=== PATIENT | male | born 1980 | race Hispanic/Latino ===

== ENCOUNTER 2020-08-08 18:21 | Emergency (ER) | payer SELFPAY ==
--- NOTE | 2020-08-08 19:59 | Event Note ---
ED Screening Note Date of service: 08/08/20 Time: 19:58 ED Screening Note: c/o SOB x 3 days denies hemoptysis or productive cough denies fever +smoker This initial assessment/diagnostic orders/clinical plan/treatment(s) is/are subject to change based on patients health status, clinical progression and re- assessment by fellow clinical providers in the ED. Further treatment and workup at subsequent clinical providers discretion. Patient/guardian urged not to elope from the ED as their condition may be serious if not clinically assessed and managed. Initial orders include: CXR
[2020-08-08 20:04] VITALS: BP 114/67
--- NOTE | 2020-08-08 21:16 | XRay Report ---
CHEST 2 VIEWS 2017 INDICATION / CLINICAL INFORMATION: Shortness of breath for 3 days COMPARISON: None available. FINDINGS: SUPPORT DEVICES: None. HEART / MEDIASTINUM: No significant abnormality. LUNGS / PLEURA: No significant pulmonary or pleural abnormality. No pneumothorax. ADDITIONAL FINDINGS: No significant additional findings. IMPRESSION: No significant acute abnormality Signer Name: Ezio Rizvi MD Signed: 08/08/2020 9:12 PM Workstation Name: [id number]
--- NOTE | 2020-08-08 22:35 | Emergency Department Report ---
- General Chief Complaint: Dyspnea/Respdistress Stated Complaint: SOB Time Seen by Provider: 08/08/20 19:58 Source: patient Mode of arrival: Ambulatory Limitations: No Limitations - History of Present Illness Initial Comments: Patient is 39 years old male with no significant past medical history. Patient presented to the emergency room complaining of shortness of breath, runny nose, cough and congestion for 2 days. Patient denied any fever or chills. No nausea or vomiting. Patient also asking if he can have a drug screen tonight. MD Complaint: cough, rhinorrhea, nasal congestion -: days(s) (2) Severity: moderate - Related Data Allergies Allergy/AdvReac Type Severity Reaction Status Date / Time Penicillins Allergy Itching Verified 08/08/20 19:58 ED Review of Systems ROS: Stated complaint: SOB Other details as noted in HPI Comment: All other systems reviewed and negative Constitutional: denies: chills, fever ENT: congestion. denies: ear pain, dental pain, hearing loss Respiratory: cough, shortness of breath. denies: SOB with exertion, SOB at rest, wheezing Cardiovascular: denies: chest pain, palpitations Gastrointestinal: denies: abdominal pain, nausea, vomiting Musculoskeletal: denies: back pain Neurological: denies: headache, weakness, numbness, paresthesias, confusion, abnormal gait ED Past Medical Hx - Past Medical History Previous Medical History?: Yes Hx Psychiatric Treatment: Yes (schizophrenia) - Social History Smoking Status: Current Every Day Smoker ED Physical Exam - General Limitations: No Limitations General appearance: alert, in no apparent distress - Head Head exam: Present: atraumatic, normocephalic, normal inspection - Eye Eye exam: Present: normal appearance - ENT ENT exam: Present: normal exam, normal orophraynx, mucous membranes moist - Neck Neck exam: Present: normal inspection, full ROM. Absent: tenderness, meningismus - Respiratory Respiratory exam: Present: normal lung sounds bilaterally - Cardiovascular Cardiovascular Exam: Present: regular rate, normal rhythm, normal heart sounds - GI/Abdominal GI/Abdominal exam: Present: soft, normal bowel sounds. Absent: distended, tenderness, guarding, rebound, rigid - Back Exam Back exam: Present: normal inspection, full ROM. Absent: CVA tenderness (R), CVA tenderness (L) - Neurological Exam Neurological exam: Present: alert, oriented X3, CN II-XII intact, normal gait - Psychiatric Psychiatric exam: Present: normal mood - Skin Skin exam: Present: warm, intact, normal color ED Course Vital Signs 08/08/20 20:02 Temperature 98.5 F Pulse Rate 103 H Respiratory 20 Rate Blood Pressure 114/67 O2 Sat by Pulse 97 Oximetry ED Medical Decision Making - Radiology Data Radiology results: report reviewed - Medical Decision Making Patient is 39 years old male with no significant past medical history. Patient presented to the emergency room complaining of shortness of breath, runny nose, cough and congestion for 2 days. Patient denied any fever or chills. No nausea or vomiting. Patient also asking if he can have a drug screen tonight. Chest x-ray is unremarkable. Patient remained stable with stable vital signs and oxygen saturation of 100% on room air. Patient given prescription for Robitussin and advised to follow-up with his primary doctor in the next 2 to 3 days and to return to the ER if symptoms not improved. Patient also informed this it could be COVID-19 and he need to get tested and meanwhile to self quarantine. Critical care attestation.: If time is entered above; I have spent that time in minutes in the direct care of this critically ill patient, excluding procedure time. ED Disposition Clinical Impression: Viral syndrome Disposition: DC-01 TO HOME OR SELFCARE Is pt being admited?: No Condition: Stable Instructions: Viral Syndrome (ED) Referrals: [facility] [Provider Group] - 3-5 Days
== END 2020-08-08 22:40 | disposition home or self-care (01) ==
LOC: ED 18:21 → MERGE 18:21 → ED 22:40
DX: B34.9 Viral infection, unspecified (principal); F20.89 Other schizophrenia; F17.200 Nicotine dependence, unspecified, uncomplicated; Z88.0 Allergy status to penicillin
CPT/HCPCS: 71046; 99283

== ENCOUNTER 2021-06-22 00:09 | Emergency (ER) | payer SELFPAY ==
[2021-06-22 01:16] LABS: Hematocrit 47.3 % (35.5-45.6); Hemoglobin 16.2 gm/dl (11.8-15.2); Mean Corpuscular HGB Conc 34 % (32-34); Mean Corpuscular Volume 94 fl (84-94); Platelet Count 594 K/mm3 (140-440); Red Blood Count 5.06 M/mm3 (3.65-5.03); Red Cell Distribution Width 13.7 % (13.2-15.2)
[2021-06-22 01:21] VITALS: BP 163/89
[2021-06-22 01:36] LABS: Albumin 5.5 g/dL (3.9-5); Calcium 10.9 mg/dL (8.4-10.2)
[2021-06-22] MEDS ORDERED: SODIUM CHLORIDE 0.9% 1000 ML 1,000 ML IV ONE (01:53)
[2021-06-22 02:01] LABS: Total Cells Counted 100
[2021-06-22 02:03] LABS: Platelet Estimate Consistent w Auto; RBC Morphology Normal
--- NOTE | 2021-06-22 02:16 | XRay Report ---
CHEST 1 VIEW 06/22/2021 1:56 AM INDICATION / CLINICAL INFORMATION: COUGH. COMPARISON: None available. FINDINGS: SUPPORT DEVICES: None. HEART / MEDIASTINUM: No significant abnormality. LUNGS / PLEURA: No significant pulmonary or pleural abnormality. No pneumothorax. ADDITIONAL FINDINGS: No significant additional findings. IMPRESSION: No acute abnormality. Signer Name: Harvinder Rivero MD Signed: 06/22/2021 2:12 AM Workstation Name: [id number]
--- NOTE | 2021-06-22 04:38 | Emergency Department Report ---
ED General Adult HPI - General Chief complaint: Medical Clearance Stated complaint: MED CLEARENCE Source: patient Mode of arrival: Ambulatory Limitations: No Limitations - History of Present Illness Initial comments: Patient is a 40-year-old white male with a history of chronic paranoid schizophrenia and drug abuse who presented to the ED accompanied by [facility] officer for medical clearance after being arrested on the street about 1 hour ago. When asked what brought the patient to the ED, the patient stated that he had no complaint, and that he has not had any pain, nausea or vomiting. Patient denies dizziness, syncope, chest pain, shortness of breath, fever, chills, abdominal pain, hematuria, testicular pain, cough, headache, hematuria or dysuria. MD Complaint: medical clearance for penitentiary -: Sudden, hour(s) (2) Radiation: non-radiation Severity scale (0 -10): 0 Quality: dull Improves with: none Worsens with: none Associated Symptoms: denies other symptoms. denies: confusion, cough, diaphoresis, fever/chills, headaches, loss of appetite, malaise, nausea/vomiting, rash, seizure, shortness of breath, syncope, weakness, other Treatments Prior to Arrival: none - Related Data Previous Rx's Medication Instructions Recorded Last Taken Type guaiFENesin [Robitussin] 5 ml PO TID PRN #100 ml 08/08/20 Unknown Rx Allergies Allergy/AdvReac Type Severity Reaction Status Date / Time Penicillins Allergy Itching Verified 06/22/21 01:17 ED Review of Systems ROS: Stated complaint: MED CLEARENCE Other details as noted in HPI Constitutional: denies: chills, fever, malaise, weakness Eyes: denies: eye pain, eye discharge, vision change ENT: denies: ear pain, throat pain Respiratory: denies: cough, shortness of breath, wheezing Cardiovascular: denies: chest pain, palpitations Endocrine: no symptoms reported Gastrointestinal: denies: abdominal pain, nausea, vomiting, diarrhea Genitourinary: denies: urgency, dysuria Musculoskeletal: denies: back pain, joint swelling, arthralgia Skin: denies: rash, lesions Neurological: denies: headache, weakness, paresthesias Psychiatric: anxiety. denies: depression, auditory hallucinations, visual hallucinations, homicidal thoughts, suicidal thoughts Hematological/Lymphatic: denies: easy bleeding, easy bruising ED Past Medical Hx - Past Medical History Previous Medical History?: No Hx Psychiatric Treatment: Yes (schizophrenia) - Social History Smoking Status: Current Every Day Smoker - Medications Home Medications: Home Medications Medication Instructions Recorded Confirmed Last Taken Type guaiFENesin [Robitussin] 5 ml PO TID PRN #100 ml 08/08/20 Unknown Rx ED Physical Exam - General Limitations: No Limitations General appearance: alert, in no apparent distress, anxious - Head Head exam: Present: atraumatic, normocephalic, normal inspection - Eye Eye exam: Present: normal appearance, PERRL, EOMI Pupils: Present: normal accommodation - ENT ENT exam: Present: normal exam, mucous membranes dry, normal external ear exam - Neck Neck exam: Present: normal inspection, full ROM. Absent: tenderness - Respiratory Respiratory exam: Present: normal lung sounds bilaterally. Absent: respiratory distress, wheezes, rales, rhonchi, chest wall tenderness, accessory muscle use, decreased breath sounds, prolonged expiratory - Cardiovascular Cardiovascular Exam: Present: normal rhythm, tachycardia, normal heart sounds. Absent: systolic murmur, diastolic murmur, rubs, gallop - GI/Abdominal GI/Abdominal exam: Present: soft, normal bowel sounds. Absent: tenderness, guarding, hyperactive bowel sounds, hypoactive bowel sounds, organomegaly - Extremities Exam Extremities exam: Present: normal inspection, full ROM, normal capillary refill - Back Exam Back exam: Present: normal inspection, full ROM. Absent: tenderness, CVA tenderness (R), CVA tenderness (L), muscle spasm, paraspinal tenderness - Neurological Exam Neurological exam: Present: alert, oriented X3, CN II-XII intact, normal gait, reflexes normal - Psychiatric Psychiatric exam: Present: normal mood, anxious, flat affect, manic. Absent: homicidal ideation, suicidal ideation - Skin Skin exam: Present: warm, dry, intact, normal color. Absent: rash ED Course Vital Signs 06/22/21 01:17 Temperature 97.9 F Pulse Rate 149 H Respiratory 16 Rate Blood Pressure 163/89 [Right] O2 Sat by Pulse 95 Oximetry ED Medical Decision Making - Lab Data Result diagrams: 06/22/21 00:59 06/22/21 00:59 - Radiology Data Radiology results: report reviewed, image reviewed [facility] [address] [place] [address] XRay Report Signed Patient: JOSH CARRASQUILLO MR#: [id number] : 1980 Acct:[id number] Age/Sex: 40 / M ADM Date: 06/22/21 Loc: ED Attending Dr: Ordering Physician: FRANKIE COWAN Date of Service: 06/22/21 Procedure(s): XR chest 1V ap Accession Number(s): [id number] cc: FRANKIE COWAN Fluoro Time In Minutes: CHEST 1 VIEW 06/22/2021 1:56 AM INDICATION / CLINICAL INFORMATION: COUGH. COMPARISON: None available. FINDINGS: SUPPORT DEVICES: None. HEART / MEDIASTINUM: No significant abnormality. LUNGS / PLEURA: No significant pulmonary or pleural abnormality. No pneumothorax. ADDITIONAL FINDINGS: No significant additional findings. IMPRESSION: No acute abnormality. Signer Name: Harvinder Rivero MD Signed: 06/22/2021 2:12 AM Workstation Name: [id number] Transcribed By: ES Dictated By: Harvinder Rivero MD Electronically Authenticated By: Harvinder Rivero MD Signed Date/Time: 06/22/21211 DD/ 1 TD/TT: - Medical Decision Making This is a 40-year-old white male with a history of chronic paranoid schizophrenia and drug abuse who presented to the ED accompanied by [facility] officer for medical clearance after being arrested on the street about 1 hour ago. When asked what brought the patient to the ED, the patient stated that he had no complaint, and that he has not had any pain, nausea or vomiting. In the ED, patient is alert and oriented x3 and is not in any distress, but tachycardic and afebrile in triage. Patient talking to himself most of the time in the presence of the lawyer real estate and occasionally uncooperative with staff. Lab test results were reviewed and showed acute leukocytosis of 25,200 without left shift, BUN of 26, creatinine of 2.4, hyponatremia of 136 mmol/L. Patient declined urinalysis and stated that he would like to leave the ED. The implications of the lab test results were explained to the patient and the treatment plan which included IV fluids and further investigation, and possible admission to the hospital but the patient declined all these plans and treatments in the ED and stated that he would rather go to penitentiary instead. Patient stated that he would rather be in penitentiary than be in the hospital. Patient therefore decided to sign out AGAINST MEDICAL ADVICE and was let out of the ED in handcuffs by the lawyer real estate from [facility] police department. At the time the patient left the ED, he was alert and oriented x3, ambulatory, in no acute distress and competent to make decisions. - Differential Diagnosis dehydration; kidney injury; anxiety; schizophrenia Critical care attestation.: If time is entered above; I have spent that time in minutes in the direct care of this critically ill patient, excluding procedure time. ED Disposition Clinical Impression: Anxiety as acute reaction to exceptional stress, Acute kidney injury (non traumatic), Drug abuse, amphetamine type, Paranoid type schizophrenia, Dehydration syndrome Disposition: 07 LEFT AGAINST MEDICAL ADVICE Is pt being admited?: No Does the pt Need Aspirin: No Condition: Undetermined Instructions: Substance Use Disorder and Mental Illness, Dehydration, Adult, [place]-[facility]vi Forms: AMA Form Time of Disposition: 04:46 Print Language: BENGALI
== END 2021-06-22 04:18 | disposition left against medical advice (07) ==
LOC: ED 00:09
DX: F20.0 Paranoid schizophrenia (principal); F41.1 Generalized anxiety disorder; F43.0 Acute stress reaction; N17.9 Acute kidney failure, unspecified; F15.10 Other stimulant abuse, uncomplicated; E86.0 Dehydration; F17.200 Nicotine dependence, unspecified, uncomplicated; Z88.0 Allergy status to penicillin; Z79.899 Other long term (current) drug therapy
CPT/HCPCS: 36415; 71045; 80053; 80320; 85007; 85025; G0480